=== PATIENT | female | born 1935 | race African-American/Black ===

== ENCOUNTER 2016-09-12 13:51 | Emergency (ER) | payer MEDICARE ==
--- NOTE | ~2016-09-12 | US85 ---
[facility] A Service of [facility] RADIOLOGY TEXT RESULTS PATIENT: GRECIA CALLE LOCATION: [facility] : 39 UNIT #: [id number] AGE: [address]: Zhao Zarate MD SEX: F ORDER DR: [id number] [facility] [address] [place], [place] [address] [id number] MR#: [id number] Acc #: [id number] NAME: GRECIA CALLE : 1935 SEX: F STUDY DATE/TIME: 09/12/2016 12:12 UNIT: PETER ROOM: STUDY DESCRIPTION: [facility] [place] [employer] [facility] Attending Physician: Zhao Zarate M.D. Ordering Physician: Zhao Zarate M.D. Primary Care Physician: Manpreet Lea M.D. MEDICAL IMAGING REPORT This report is preliminary unless electronic signature is present EXAM Right leg vein Doppler 09/12/2016 INDICATION Right leg pain for the last 2 days. No trauma. TECHNIQUE Venous ultrasound examination of the right lower extremity was performed using grayscale, spectral Doppler and color flow Doppler imaging. FINDINGS The examination is negative. There is no evidence of right lower extremity deep venous thrombus from the groin to the lower calf. Visualized greater saphenous vein is also patent. IMPRESSION Negative examination. No evidence of right lower extremity deep venous thrombosis. Dictated by... Benjamin Álvarez Jr., M.D. THIS IS AN ELECTRONICALLY VERIFIED REPORT Benjamin Álvarez Jr., M.D. at 09/12/2016 4:45 PM PIPER/gary TD: 09/12/2016 13:11 JOB #: [id number] MEDICAL IMAGING REPORT Page 1 of 1 COPY
--- NOTE | ~2016-09-12 | CR21 ---
[facility] A Service of [facility] RADIOLOGY TEXT RESULTS PATIENT: GRECIA CALLE LOCATION: [facility] : 39 UNIT #: [id number] AGE: [address]: Zhao Zarate MD SEX: F ORDER DR: [id number] [facility] [address] [place], [place] [address] [id number] P MR#: [id number] Acc #: [id number] NAME: GRECIA CALLE : 1935 SEX: F STUDY DATE/TIME: 09/12/2016 11:16 UNIT: PETER ROOM: STUDY DESCRIPTION: CR Ankle Min 3 Views Rt Attending Physician: Zhao Zarate M.D. Ordering Physician: Zhao Zarate M.D. Primary Care Physician: Manpreet Lea MEDICAL IMAGING REPORT This report is preliminary unless electronic signature is present EXAM Right ankle series. HISTORY Pain, swelling 3 days. Lateral side worse. No known injury. FINDINGS AP, lateral and oblique radiographs of the right ankle are presented. No fracture or malalignment. Ankle mortis joint is intact. No acute appearing soft tissue abnormality. Soft tissue swelling adjustment to the lateral malleolus and anterior aspect of the ankle. Small plantar calcaneal spur. No soft tissue defect, subcutaneous air or radiodense foreign body. Extensive vascular calcification. Dictated by... Timothy Navarro M.D. THIS IS AN ELECTRONICALLY VERIFIED REPORT Timothy Navarro M.D. at 09/18/2016 10:21 PM Ward TD: 09/12/2016 12:35 JOB #: [id number] MEDICAL IMAGING REPORT Page 1 of 1 COPY
[~2016-09-12 13:51] MED LIST: ASPIRIN PO; COREG PO; MOBIC PO; NORVASC PO; PREDNISONE10 MG/DOSE PO; TRIAMTERENE-HCT1 TA8 PO; ZANAFLEX PO; ZOLOFT PO
== END 2016-09-12 13:55 | disposition home or self-care (01) ==
LOC: CED 13:51
DX: M13.871 Other specified arthritis, right ankle and foot (principal)
CPT/HCPCS: 73610; 93971; 99284